=== PATIENT | female | born 1965 | race Two or more races ===

== ENCOUNTER 2025-03-31 10:31 | Emergency (ER) | payer OTHER ==
[~2025-03-31] VITALS: Ht 170.2 cm; Wt 70.0 kg
[2025-03-31] MEDS ORDERED: IBUP-1454 PO (12:18)
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
[2025-03-31 12:23] VITALS: BP 147/98; PULSE 64; RESP 17; TEMP 98; O2SAT 97
== END 2025-03-31 12:25 | disposition home or self-care (01) ==
LOC: ER 10:31 → EDBD 10:31 → EDUNIT# 10:31 → ER 12:24
DX: S01.511A Laceration without foreign body of lip, initial encounter (principal); S80.211A Abrasion, right knee, initial encounter; V49.9XXA Car occupant (driver) (passenger) injured in unspecified traffic accident, initial encounter; Y93.89 Activity, other specified; Y92.89 Other specified places as the place of occurrence of the external cause; Y99.8 Other external cause status
CPT/HCPCS: 12011

== ENCOUNTER 2025-03-31 21:23 | Emergency (ER) | payer OTHER ==
[~2025-03-31] VITALS: Ht 160 cm; Wt 60.3 kg
[2025-03-31] MEDS: SODIUM CHLORIDE 0.9% 1,000 ML IVB ONE (00:42)
[~2025-03-31 21:23] MED LIST: IBUP-1454 PO
[2025-03-31 21:24] VITALS: TEMP 97
[2025-03-31] MEDS: IOHEXOL 300 MG/ML 100ML BOTTLE IJ ONE (22:00)
[2025-03-31 22:14] LABS: Hematocrit 37.8 % (36.0-46.0); Hemoglobin 12.9 g/dL (12.2-16.2); Mean Corpuscular Hemoglobin 28.8 pg (28.0-32.0); Mean Corpuscular Volume 84.7 fL (80.0-100.0); Nucleated Red Blood Cells % 0.0 %
[2025-03-31 22:32] LABS: Alanine Aminotransferase 21 U/L (7-40); Albumin 4.6 g/dL (3.2-4.8); Alkaline Phosphatase 87 U/L (46-116); Anion Gap 9 (5-15); BUN/Creatinine Ratio 20.5 (10.0-20.0); Blood Urea Nitrogen 17 mg/dL (9-23); Calcium 10.1 mg/dL (8.7-10.4); Carbon Dioxide 27 mmol/L (20-31); Chloride 103 mmol/L (98-107); Glucose 93 mg/dL (74-106); Lipase 53 U/L (12-53); Potassium 4.1 mmol/L (3.5-5.1); Sodium 139 mmol/L (136-145); Total Protein 7.1 g/dL (5.7-8.2)
[2025-03-31 22:37] LABS: Bilirubin, Total 1.6 mg/dL (0.2-1.0)
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
[2025-04-01 01:33] LABS: Urine Protein, UAD Negative (Negative)
[2025-04-01 01:35] VITALS: BP 134/76; PULSE 74; RESP 16; O2SAT 98
== END 2025-04-01 01:35 | disposition home or self-care (01) ==
LOC: ER 21:23
DX: S83.91XA Sprain of unspecified site of right knee, initial encounter (principal); S30.1XXA Contusion of abdominal wall, initial encounter; R11.0 Nausea; V89.2XXA Person injured in unspecified motor-vehicle accident, traffic, initial encounter; Y93.89 Activity, other specified; Y92.410 Unspecified street and highway as the place of occurrence of the external cause; Y99.8 Other external cause status
CPT/HCPCS: 36415; 73562; 73590; 74177; 80053; 81001; 83690; 85025; 96360; 99285; J7030; Q9967